=== PATIENT | female | born 2000 | race Caucasian/White ===

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

== ENCOUNTER 2022-01-03 11:32 | Emergency (ER) | payer OTHER ==
[~2022-01-03] VITALS: Ht 157.5 cm; Wt 53.2 kg
[2022-01-03 11:53] VITALS: BP 125/81
--- NOTE | 2022-01-03 11:58 | NUR ---
PT TO [facility] LOBBY WITH UA CUP
--- NOTE | 2022-01-03 13:45 | NUR ---
TO ER BED 3
--- NOTE | 2022-01-03 14:14 | NUR ---
21/F WALKED IN C/O NVD ONSET 3 DAYS. PT SUSPECTS FOOD POISONING. DENIES FEVER. C/O LOW BACK PAIN AND EPIGASTRIC PAIN 05/14. AAO4, AMBULATORY.
[2022-01-03] MEDS ORDERED: ALUMINUM HYD/MAG/SIMETHICONE 30 ML UDC PO ONE (14:15)
[2022-01-03] MEDS ORDERED: ONDANSETRON 4 MG ODT PO ONE (14:15)
[2022-01-03] MEDS ORDERED: ONDA-188 PO (14:16)
[2022-01-03 14:45] VITALS: BP 118/72
== END 2022-01-03 14:45 | disposition home or self-care (01) ==
LOC: MED 11:32
DX: A05.9 Bacterial foodborne intoxication, unspecified (principal)
CPT/HCPCS: 81002; 81025; 99283; Q0162

== ENCOUNTER 2022-04-20 12:05 | Emergency (ER) | payer OTHER ==
[~2022-04-20] VITALS: Ht 157.5 cm; Wt 51.5 kg
[~2022-04-20 12:05] MED LIST: ONDA-188 PO
[2022-04-20 12:35] VITALS: BP 132/75
--- NOTE | 2022-04-20 12:40 | NUR ---
PT AMB TO BED 3.
--- NOTE | 2022-04-20 12:50 | NUR ---
AMBULATED TO BATHROOM WITH STEADY GAIT
--- NOTE | 2022-04-20 12:51 | NUR ---
22 Y/O FEMALE BIB SELF C/O N/V/D X 3 DAYS. LOWER BACK PAIN 2 DAYS AGO. PER PT SHE BELIEVES THAT SHE IS HAVING AN ADVERSE REACTION TO ALCOHOL THIS IS THE FIRST TIME SHE HAS HAD ALCOHOL, LAST INTAKE 3 DAYS AGO. DENIES ANY BLOOD IN STOOL OR VOMITUS, DENIES ANY ABD PAIN AT THIS TIME, DENIES ANY OTHER URINARY S/S. DESCRIBES DIARRHEA "WATER AND MUCUS". PMH: DENIES NKA
--- NOTE | 2022-04-20 12:59 | NUR ---
URINE WALKED TO LAB
[2022-04-20] MEDS ORDERED: METOCLOPRAMIDE 10 MG TAB PO ONE (13:15)
--- NOTE | 2022-04-20 13:31 | NUR ---
LAB AT BEDSIDE FOR BLOOD DRAW
[2022-04-20 13:52] LABS: APPEARANCE,URINE CLEAR (CLEAR); BILIRUBIN,URINE NEGATIVE (NEGATIVE); BLOOD, URINE NEGATIVE (NEGATIVE); COLOR,URINE YELLOW (YELLOW); LEUKOCYTE ESTERASE ,URINE TRACE (NEGATIVE); NITRITE, URINE NEGATIVE (NEGATIVE); PH,URINE 6.5 (5.0-9.0); UGLUCOSE NEGATIVE (NEGATIVE)
[2022-04-20 13:54] LABS: BASOPHILS % (AUTO) 0.3 % (0.0-2.0); HEMATOCRIT 38.5 % (36-48); HEMOGLOBIN 13.3 g/dL (12.0-16.0); LYMPHOCYTES # (AUTO) 1.2 K/uL (2.5-16.5); LYMPHOCYTES % (AUTO) 12.6 % (20.5-51.1); MEAN CORPUSCULAR HEMOGLOBIN 31 pg (27-31); MEAN CORPUSCULAR HGB CONC 34 g/dL (33-37); MEAN CORPUSCULAR VOLUME 89.7 fL (80-94); MONOCYTES # (AUTO) 0.8 K/uL (0.8-1.0); MONOCYTES % (AUTO) 9.1 % (1.7-9.3); NEUTROPHILS # (AUTO) 7.2 K/uL (1.8-7.7); PLATELET COUNT (AUTO) 281 K/uL (140-450); RED BLOOD CELL COUNT(AUTO) 4.29 MIL/uL (4.20-5.40); RED CELL DISTRIBUTION WIDTH 12.4 % (11.6-13.7); WHITE BLOOD COUNT (AUTO) 9.3 K/uL (4.8-10.8)
[2022-04-20] MEDS ORDERED: METO-485 PO (13:54)
[2022-04-20 14:10] LABS: ALBUMIN 4.8 g/dL (3.4-5.0); CARBON DIOXIDE 28.3 mmol/L (21-32); CREATININE 0.5 mg/dL (0.6-1.3); POTASSIUM 3.3 mmol/L (3.5-5.1); TOTAL BILIRUBIN 1.1 mg/dL (0.0-1.0)
--- NOTE | 2022-04-20 15:09 | NUR ---
DR CALDERON AT BEDSIDE FOR EVAL
[2022-04-20 15:18] VITALS: BP 129/78
--- NOTE | 2022-04-20 15:19 | NUR ---
Patient discharged with v/s stable. Written and verbal after care instructions ABOUT VIRAL GASTROENETERITIS, GASTRITIS given and explained. Patient alert, oriented and verbalized understanding of instructions. Ambulatory with steady gait. All questions addressed prior to discharge. ID band removed. Patient advised to follow up with PMD. Rx of REGLAN given. Patient educated on indication of medication including possible reaction and side effects. Opportunity to ask questions provided and answered.
== END 2022-04-20 15:19 | disposition home or self-care (01) ==
LOC: MED 12:05
DX: A08.4 Viral intestinal infection, unspecified (principal)
CPT/HCPCS: 36415; 80053; 81001; 81025; 83690; 85025; 87086; 99283; J8597

== ENCOUNTER 2022-05-21 10:05 | Emergency (ER) | payer OTHER ==
[~2022-05-21] VITALS: Ht 157.5 cm; Wt 52.2 kg
[~2022-05-21 10:05] MED LIST changes: +METO-485 PO
[2022-05-21 10:10] VITALS: BP 129/79
[2022-05-21 10:39] LABS: BASOPHILS % (AUTO) 0.2 % (0.0-2.0); HEMATOCRIT 40.7 % (36-48); LYMPHOCYTES # (AUTO) 0.8 K/uL (2.5-16.5); LYMPHOCYTES % (AUTO) 6.4 % (20.5-51.1); MEAN CORPUSCULAR HEMOGLOBIN 31 pg (27-31); MEAN CORPUSCULAR HGB CONC 35 g/dL (33-37); MEAN CORPUSCULAR VOLUME 90.2 fL (80-94); MONOCYTES # (AUTO) 0.6 K/uL (0.8-1.0); MONOCYTES % (AUTO) 4.7 % (1.7-9.3); NEUTROPHILS % (AUTO) 88.7 % (42.2-75.2); PLATELET COUNT (AUTO) 335 K/uL (140-450); RED BLOOD CELL COUNT(AUTO) 4.52 MIL/uL (4.20-5.40); RED CELL DISTRIBUTION WIDTH 12.7 % (11.6-13.7); WHITE BLOOD COUNT (AUTO) 12.4 K/uL (4.8-10.8)
--- NOTE | 2022-05-21 10:53 | NUR ---
Martha braden in [facility] - 05/21/22 at 1058 by [email or web address] PT TAKEN TO XRAY
--- NOTE | 2022-05-21 10:58 | NUR ---
XRAY ATTEMPTED TO CALL, NO RESPONSE
--- NOTE | 2022-05-21 11:04 | NUR ---
PT FOUND OUTSIDE, AMB TO [facility]
--- NOTE | 2022-05-21 11:13 | NUR ---
PT TAKEN TO XRAY VIA WC
[2022-05-21 11:27] LABS: ALBUMIN 5.2 g/dL (3.4-5.0); ANION GAP 15.1 (8-16); CARBON DIOXIDE 26.5 mmol/L (21-32); CREATININE 0.8 mg/dL (0.6-1.3); POTASSIUM 3.6 mmol/L (3.5-5.1); TOTAL BILIRUBIN 0.5 mg/dL (0.0-1.0)
[2022-05-21] MEDS ORDERED: ONDA8TAB87 PO (12:07)
[2022-05-21] MEDS ORDERED: OMEP40EC23 PO (12:07)
[2022-05-21 12:08] LABS: APPEARANCE,URINE CLEAR (CLEAR); BILIRUBIN,URINE 1+ (NEGATIVE); BLOOD, URINE 3+ (NEGATIVE); COLOR,URINE YELLOW (YELLOW); LEUKOCYTE ESTERASE ,URINE NEGATIVE (NEGATIVE); NITRITE, URINE NEGATIVE (NEGATIVE); PH,URINE 6.5 (5.0-9.0); UGLUCOSE NEGATIVE (NEGATIVE)
[2022-05-21 12:21] LABS: RBC,URINE 50-80 /HPF (0-5); WBC,URINE 0-5 /HPF (0-5)
[2022-05-21 12:27] VITALS: BP 129/79
--- NOTE | 2022-05-21 12:27 | NUR ---
Patient discharged with v/s stable. Written and verbal after care instructions given and explained. Patient alert, oriented and verbalized understanding of instructions. Ambulatory with steady gait. All questions addressed prior to discharge. ID band removed. Patient advised to follow up with PMD. Rx of ANITRA STAUFFERSEC (SENT) given. Patient educated on indication of medication including possible reaction and side effects. Opportunity to ask questions provided and answered.
== END 2022-05-21 12:27 | disposition home or self-care (01) ==
LOC: MED 10:05
DX: R10.13 Epigastric pain (principal); R11.2 Nausea with vomiting, unspecified; Z79.899 Other long term (current) drug therapy
CPT/HCPCS: 36415; 71045; 80053; 81001; 81025; 83690; 85025; 87086; 99284

== ENCOUNTER 2023-08-29 09:01 | Emergency (ER) | payer OTHER ==
[~2023-08-29] VITALS: Ht 157.5 cm; Wt 65.8 kg
[~2023-08-29 09:01] MED LIST changes: +OMEP40EC23 PO; +ONDA8TAB87 PO
[2023-08-29 09:04] VITALS: BP 115/83; PULSE 66; RESP 18; TEMP 97; O2SAT 94
[2023-08-29 09:23] LABS: BASOPHILS # (AUTO) 0.2 K/uL (0.00-0.22); BASOPHILS % (AUTO) 0.8 % (0.0-2.0); HEMATOCRIT 38.8 % (36-48); HEMOGLOBIN 13.3 g/dL (12.0-16.0); LYMPHOCYTES # (AUTO) 0.5 K/uL (2.5-16.5); LYMPHOCYTES % (AUTO) 2.1 % (20.5-51.1); MEAN CORPUSCULAR HEMOGLOBIN 31 pg (27-31); MEAN CORPUSCULAR HGB CONC 34 g/dL (33-37); MEAN CORPUSCULAR VOLUME 89.9 fL (80-94); MONOCYTES # (AUTO) 0.6 K/uL (0.8-1.0); NEUTROPHILS # (AUTO) 19.9 K/uL (1.8-7.7); NEUTROPHILS % (AUTO) 94.1 % (42.2-75.2); PLATELET COUNT (AUTO) 309 K/uL (140-450); RED BLOOD CELL COUNT(AUTO) 4.31 MIL/uL (4.20-5.40); RED CELL DISTRIBUTION WIDTH 12.4 % (11.6-13.7); WHITE BLOOD COUNT (AUTO) 21.2 K/uL (4.8-10.8)
[2023-08-29] MEDS: NACL 0.9% 1,000 ML IV ONE ×2 (09:34→11:06)
[2023-08-29] MEDS: ONDANSETRON 4 MG/2 ML VIAL IVP ONE ×2 (09:41→10:38)
[2023-08-29 09:53] LABS: ALBUMIN 4.3 g/dL (3.4-5.0); ANION GAP 19.6 (8-16); CALCIUM 8.8 mg/dL (8.5-10.1); CARBON DIOXIDE 19.7 mmol/L (21-32); CREATININE 0.8 mg/dL (0.6-1.3); POTASSIUM 3.3 mmol/L (3.5-5.1); TOTAL BILIRUBIN 0.9 mg/dL (0.0-1.0)
[2023-08-29 10:58] LABS: FLU A ANTIGEN negative (NEGATIVE); FLU B ANTIGEN negative (NEGATIVE)
[2023-08-29] MEDS: METOCLOPRAMIDE 10 MG/2 ML INJ VIAL IVP ONE (12:28)
[2023-08-29] MEDS ORDERED: ONDA-188 SL (13:04)
[2023-08-29 13:16] VITALS: BP 115/73; PULSE 58; RESP 12; TEMP 98; O2SAT 99
== END 2023-08-29 13:14 | disposition home or self-care (01) ==
LOC: MED 09:01
DX: K52.9 Noninfective gastroenteritis and colitis, unspecified (principal); Z20.822 Contact with and (suspected) exposure to COVID-19; Z79.1 Long term (current) use of non-steroidal anti-inflammatories (NSAID); Z79.899 Other long term (current) drug therapy
CPT/HCPCS: 36415; 74177; 80053; 81025; 83690; 85025; 87426; 87804; 96361; 96374; 96375; 96376; 99285; J2405; J2765; Q9967; J7030